=== PATIENT | male | born 1940 | race Caucasian/White ===

== ENCOUNTER 2017-12-04 09:06 | Outpatient (CLI) | payer MEDICARE, OTHER | END 2017-12-04 09:07 | disposition home or self-care (01) | LOC: DI 09:06 | PROVIDERS: ATTEND Internal Medicine | DX: R94.31 Abnormal electrocardiogram [ECG] [EKG] (principal) | CPT/HCPCS: 93306 ==

== ENCOUNTER 2017-12-23 06:51 | Outpatient (CLI) | payer MEDICARE, OTHER ==
[2017-12-23 09:50] VITALS: BP 126/72
--- NOTE | 2017-12-23 18:18 | CARDIAC PROCEDURE NOTE ---
DATE OF SERVICE: 12/23/2017 Physician: Benji Portillo MD DATE OF SERVICE: 12/23/2017. PROTOCOL: Mike protocol treadmill for echocardiographic imaging. INDICATIONS: This is a 77-year-old male with a fairly rapid onset of worsening dyspnea on exertion. No definite chest pain. Unremarkable baseline echocardiogram. PROCEDURE: The patient was exercised in the standard fashion on Mike protocol into stage III, at which point he began to fatigue. He also developed increased ventricular ectopy, both in frequency and in complexity. He did have a couple of couplets and 1 triplet. He had no ST or T-wave changes in spite of this. Based on the increased ectopy, however, and based on his achieving 85% maximum heart rate, the procedure was terminated and he was removed for echocardiographic imaging. At no time did he have chest pain. He did have moderate dyspnea, and there were no diagnostic ST or T-wave changes on his tracings. IMPRESSION: Essentially negative treadmill, performed for echocardiographic imaging. The ventricular ectopy is a bit worrisome, but there were no diagnostic ST changes. See echocardiographic report for details. TD: 12/23/2017 18:18
== END 2017-12-23 06:52 | disposition home or self-care (01) ==
LOC: DI 06:51
PROVIDERS: ATTEND Internal Medicine
DX: R94.31 Abnormal electrocardiogram [ECG] [EKG] (principal)
CPT/HCPCS: 93350

== ENCOUNTER 2019-01-04 13:22 | Outpatient (CLI) | payer MEDICARE, OTHER ==
--- NOTE | 2019-01-04 17:01 | XRAY Report ---
Reason: B/L PLANTAR FOOT PAIN,WORSENTING, H/O ARTHRITIS,SW Procedure Date: 01/04/2019 Accession Number: [id number] / [id number] Procedure: XR - Foot 3 View LT CPT Code: FULL RESULT: EXAM: LEFT FOOT RADIOGRAPHY EXAM DATE: 01/04/2019 02:21 PM. CLINICAL HISTORY: Bilateral plantar foot pain, worsening. History of arthritis. COMPARISON: None. TECHNIQUE: 3 views. FINDINGS: Bones: Note is made of posterior calcaneal enthesopathy. No fractures or bone lesions. Joints: Normal. No subluxations. Soft Tissues: Normal. No soft tissue swelling. IMPRESSION: Posterior calcaneal enthesopathy. [facility]
--- NOTE | 2019-01-04 17:01 | XRAY Report ---
Reason: B/L PLANTAR FOOT PAIN,WORSENTING, H/O ARTHRITIS,SW Procedure Date: 01/04/2019 Accession Number: [id number] / [id number] Procedure: XR - Foot 3 View RT CPT Code: FULL RESULT: EXAM: RIGHT FOOT RADIOGRAPHY EXAM DATE: 01/04/2019 02:21 PM. CLINICAL HISTORY: Bilateral plantar foot pain, worsening, history of arthritis, swelling. COMPARISON: None. TECHNIQUE: 3 views. FINDINGS: Bones: Minimal posterior calcaneal enthesopathy, less pronounced on the left side. No fractures or bone lesions. Joints: Normal. No subluxations. Soft Tissues: Normal. No soft tissue swelling. IMPRESSION: Minimal posterior calcaneal enthesopathy. RADIA
== END 2019-01-04 13:23 | disposition home or self-care (01) ==
LOC: DI 13:22
PROVIDERS: ATTEND Family Medicine
DX: M77.32 Calcaneal spur, left foot (principal); M77.31 Calcaneal spur, right foot